=== PATIENT | male | born 1970 | race Caucasian/White ===

== ENCOUNTER 2019-10-28 05:55 | Day surgery (SDC) | payer OTHER ==
[~2019-10-28] VITALS: Ht 185.4 cm; Wt 117.9 kg
--- NOTE | ~2019-10-28 | OR ---
[facility] [address] [facility] [place], [place] [address] Draft DATE OF OPERATION: 10/28/2019 SURGEON: Uri Reyes DPM PREOPERATIVE DIAGNOSIS: Hallux valgus, right foot. POSTOPERATIVE DIAGNOSIS: Hallux valgus, right foot. PROCEDURE PERFORMED: Lapidus bunionectomy or fusion of the first metatarsal cuneiform. DIRECTOR OF LAND ACQUISITION: Jaleel Rodriguez DPM. NURSE DIRECTOR OF LAND ACQUISITION: Taina Bedolla CRNA. ANESTHESIA: Regional popliteal block with local consisting of 1:1 mix of 2% lidocaine plain and 0.5% ropivacaine, total of 20 mL were utilized and then MAC anesthesia. MATERIALS UTILIZED: We had one locking plate with a compression screw and locking screws. We had 3-0 Vicryl, 4-0 Vicryl and surgical andrea. ESTIMATED BLOOD LOSS: Approximately 5 mL or minimal. HEMOSTASIS: With ankle tourniquet. PROCEDURE IN DETAIL: The patient was brought into the operating room and placed upon the operating table. Regional popliteal block was performed following IV sedation. Also, local anesthesia was administered about patient's right ankle area. Foot was then scrubbed, prepped and draped in usual sterile technique. An Esmarch bandage was then utilized to exsanguinate the patient's right foot and then the left wrapped around the ankle to act as a tourniquet. Attention was then directed to the dorsal aspect of the first PATIENT NAME: JOHNNY PELLETIER OPERATIVE REPORT DATE OF : 72 REPORT #: [id number] PHYSICIAN: URI REYES DPM PCP: FRENCH PHILLIPS REPORT IS CONFIDENTIAL AND NOT TO BE RELEASED WITHOUT AUTHORIZATION [facility] [address] [place], [place] [address] Draft metatarsophalangeal joint region where approximately a 4 cm linear incision was performed both parallel and medial to the tendon of the extensor hallucis longus. The incision was then deepened down through the subcutaneous tissue with care being taken to identify and retract vital neurovascular structures. Bleeders were cauterized and ligated as necessary. Dissection continued down to the joint capsule. Linear capsulotomy was performed and joint capsule was reflected off the medial aspect of the first metatarsal thus exposing the bony prominence at this location. Sagittal saw was then utilized to resect and reduce the bony prominence on the medial aspect of the first metatarsal head. Normal trabecular pattern was identified, good coloration, did not appear to be cystic or degenerative changes present. Attention was then redirected to the first intermetatarsal space area via the original skin incision. Both sharp and blunt dissection was utilized to dissect down to the level of the conjoint tendon of the adductor hallucis. This was resected from the base of the proximal phalanx. Also, a fibular sesamoid release was performed utilizing the 64 blade reflecting the soft tissue attachments just superior to the fibular sesamoid giving it flexibility and the ability to slip back under the first metatarsal. Next, the extensor hallucis brevis tendon was identified and resected. After completion of soft tissue release first digit was able to move into more corrected position easily. Attention was then directed more proximally. The skin incision was extended up to the first cuneiform. Careful dissection down around the first cuneiform and first metatarsal base was performed. Care been taken to identify and retract vital neurovascular structures again. Bleeders were cauterized as necessary. Linear dissection was performed down to the level of the joint capsule and then a transverse capsulotomy was performed with a #64 blade. Soft tissue around the first metatarsal cuneiform joint area of the ligaments were released on the dorsal end of medial aspects. The ligaments felt more on the planter aspects were left intact. Two pins, K-wires were then placed and joint distractor applied and distracted the first metatarsal cuneiform joint area. Sagittal saw this time was then utilized to resect and remove the articular cartilage. Any remaining portions of cartilage were curetted for complete removal. The lateral aspects of the joint surface areas were slightly resected to aide in correction as well as the plantar aspect of the joint region as well. Extensor tendon was protected as well as the second metatarsal. Next, adjacent aspects of the bone within the joint were fenestrated. Area was flushed with copious amounts of sterile normal saline. The joint distractor was removed and the first metatarsal cuneiform reapproximated in a corrected rectus position. K-wire was then thrown through the first metatarsal into the cuneiform to act as temporary fixation. Next, two other K-wires were driven from the first metatarsal into second metatarsal to act as temporary fixation. Positioning was verified via intraoperative fluoroscopy. Next, compression screw was placed with correct compression screw crossing the base of the first metatarsal into the first cuneiform and then into the middle cuneiform. Angulation on the screw was slightly angled superior, proximal and lateral. Positioning was again verified via intraoperative fluoroscopy. After completion of the compression screw placement we had plate applied, this was temporarily held in place PATIENT NAME: JOHNNY PELLETIER OPERATIVE REPORT DATE OF : 72 REPORT #: [id number] PHYSICIAN: URI REYES DPM PCP: FRENCH PHILLIPS REPORT IS CONFIDENTIAL AND NOT TO BE RELEASED WITHOUT AUTHORIZATION [facility] [address] [place], [place] [address] Draft with pins. Two screws were placed proximally utilizing fluoroscopy, measuring guide following standard AO fixation technique. Next, compression screw was then applied into the first metatarsal before this screw was completely tightened down. The other K-wires were removed. The compression screw going into the middle and medial cuneiform was tightened as well as the compression screw at this time. The distal screws were then placed into the locking plate only standard AO fixation technique. Correction of the bunion was well maintained. The area was flushed with copious amounts of sterile normal saline prior to fixation. The area again was flushed with sterile normal saline. Attention was then redirected to the head on the first metatarsal where this was smooth and sanded as needed. This was again flushed with sterile normal saline and the joint capsule reapproximated and coapted utilizing 3-0 Vicryl, subcutaneous reapproximated and coapted utilizing 4-0 Vicryl, and skin reapproximated and coapted utilizing surgical andrea. Postoperative dressing consisting of Silver foam dressing was applied followed by rolled gauze, cotton roll and Coban. The ankle tourniquet was removed. Prompt hyperemic response was noted to all digits of the patient's right foot. The patient was then escorted to the recovery area with cap refill time less than 3 seconds to distal aspect of toes as well as vital signs stable. The patient had tolerated both procedures and the anesthesia well and following a period of postoperative monitoring he was discharged to home with both written and oral instructions. Uri Reyes DPM TM/MODL /[id number] Copies: ~ PATIENT NAME: JOHNNY EPLLETIER OPERATIVE REPORT DATE OF : 72 REPORT #: [id number] PHYSICIAN: URI REYES DPM PCP: FRENCH PHILLIPS REPORT IS CONFIDENTIAL AND NOT TO BE RELEASED WITHOUT AUTHORIZATION
[~2019-10-28 05:55] MED LIST: HYDROCHLOROTH12.5 M1 PO; IBUPROFEN200 M1 PO; VITAMIN D325 MC2 PO
[2019-10-28] MEDS ORDERED: AMLODIPINE BESY10 MG PO (06:12)
--- NOTE | 2019-10-28 10:12 | NUR ---
10/28/19 1012 Sheets,Latosha 0981 PT ARRIVED TO PACU ON RA, PT WAKES EASILY AND DENIES PAIN AND NAUSEA. VSS. WARM BLACKETS GIVEN PER REQUEST.
== END 2019-10-28 11:00 | disposition home or self-care (01) ==
LOC: OPS 05:55 → DS 05:55
PROVIDERS: ATTEND Podiatrist Foot & Ankle Surgery
PROC: 0SGK04Z Fusion of Right Tarsometatarsal Joint with Internal Fixation Device, Open Approach (ICD-10-PCS; principal; 2019-10-28 06:45)
DX: M20.11 Hallux valgus (acquired), right foot (principal)
CPT/HCPCS: 01480; 73620; 73630; J0690; J1100; J1885; J2001; J2250; J2704; J2795; J7121